=== PATIENT | female | born 1985 | race Caucasian/White ===

== ENCOUNTER → 2018-04-02 | Outpatient (CLI) | payer BC, MEDICAID ==
--- NOTE | 2018-04-02 16:29 | XCELERA REPORT ---
[address] [address] Transthoracic Echocardiogram Report Name: GILA GOODE Age: 32 yrs Gender: Female : 1985 Patient Status: Outpatient Patient Location: [facility] Study Date: 04/02/2018 08:23 AM Height: 62 in Weight: 132 lb BSA: 1.6 m2 Reason For Study: PALPITATIONS Ordering Physician: ADELE DEWEY Performed By: Jojo Chowdhury Interpretation Summary Suboptimal study due to poor endocardial definition of myocardium in Apical 4 chamber view, and no apical 2 chamber view to adequately assess if regional wall motion abnormality in the inferior and anterior wall, ie incomplete evaluation of regional wall motion abn. . No MVP, no LA enlargement, n LV enlargement, LVEF is low normal, based on PLAX and A4C views. Normal RH size, no doppler evidence of ASD, no Ebsteins anomaly. and no evidence of pulm hypertension. There is hypokinesis of the IVS and Inferoseptal wall, which could cause palpitations if ischemia or perfusion abnormality is found on stress testing. MMode/2D Measurements & Calculations RVDd: 2.5 cm LVIDd: 4.4 cm FS: 26.8 % Ao root diam: 2.7 cm IVSd: 0.80 cm LVIDs: 3.2 cm EDV(Teich): 87.8 ml LVPWd: 0.80 cm ESV(Teich): 41.7 ml Ao root area: 5.6 cm2 LA dimension: 3.0 cm EF(Teich): 52.5 % Doppler Measurements & Calculations MV E max liane: MV P1/2t max liane: PA V2 max: PI end-d liane: 68.6 cm/sec 69.0 cm/sec 57.8 cm/sec 84.3 cm/sec MV A max liane: MV P1/2t: 46.4 msec PA max P.2 cm/sec MVA(P1/2t): 4.7 cm2 1.3 mmHg MV E/A: 1.4 MV dec slope: 435.6 cm/sec2 MV dec time: 0.17 sec TR max liane: MV P1/2t-pr_phl: 210.4 cm/sec 46.4 msec TR max P.7 mmHg Left Ventricle The left ventricle is normal in size. There is normal left ventricular wall thickness. The left ventricular ejection fraction is within normal limits. LV EF is 53%. Spectral Doppler of the mitral valve shows a normal E/A wave ratio. There is septal wall moderate hypokinesis. No apical 2 chamber view to assess inferior and anterior wall motion abn. There is no thrombus. Right Ventricle The right ventricle is normal size. The right ventricular systolic function is normal. Atria The right atrium is normal in size. The left atrial size is normal. The interatrial septum is intact with no evidence for an atrial septal defect. Mitral Valve There is mild mitral annular calcification. The mitral valve is grossly normal. There is no evidence of mitral valve prolapse. There is no vegetation seen on the mitral valve. There is no mitral valve stenosis. There is a mild amount of mitral regurgitation. Aortic Valve The aortic valve is trileaflet. The aortic valve opens well. The aortic valve is sclerotic and shows some degree of functional abnormality. There is no aortic valvular vegetation. There is no aortic valve stenosis. No aortic regurgitation is present. Tricuspid Valve The tricuspid valve is not well visualized secondary to technical limitations. There is no tricuspid stenosis. Right ventricular systolic pressure is normal. There is a mild amount of tricuspid regurgitation. Pulmonic Valve The pulmonic valve is not well visualized. There is a trace or physiologic amount of pulmonic regurgitation. Great Vessels The aortic root is normal size. Effusions There is no pericardial effusion. I WMSI = 1.50 % Normal = 50 Segments Size X - Cannot 2 - 4 - 1-2 small Interpret 1 - Normal Hypokinetic 3 - AkineticDyskinetic 3-5 moderate 5 - 6-14 large Aneurysmal 15-16 diffuse : ADELE DEWEY > Rohit Horton
== END ==
LOC: SP 07:45
PROVIDERS: ATTEND Family Medicine
DX: R00.2 Palpitations (principal)
CPT/HCPCS: 93306

== ENCOUNTER → 2018-04-23 | Outpatient (CLI) | payer BC ==
--- NOTE | 2018-04-23 13:32 | RADIOLOGY REPORT (SQ) ---
EXAM DESCRIPTION: KNEE LEFT 4 VIEWS COMPLETED DATE/TIME: 04/23/2018 1:13 pm REASON FOR STUDY: ACUTE PAIN OF LEFT KNEE M25.562 PAIN IN LEFT KNEE COMPARISON: None. NUMBER OF VIEWS: Four views. TECHNIQUE: AP, lateral, and both oblique radiographic images acquired of the left knee. LIMITATIONS: None. FINDINGS: MINERALIZATION: Normal. BONES: No acute fracture or dislocation. No worrisome bone lesions. JOINT: No effusion. SOFT TISSUES: No soft tissue swelling. No radio-opaque foreign body. OTHER: No other significant finding. IMPRESSION: NEGATIVE STUDY OF THE LEFT KNEE. NO RADIOGRAPHIC EVIDENCE OF ACUTE INJURY. TECHNICAL DOCUMENTATION: JOB ID: [id number] [employer]- All Rights Reserved Reading location - IP/workstation name: [email or web address]
== END ==
LOC: OD 12:50
PROVIDERS: ATTEND Family Medicine
DX: M25.562 Pain in left knee (principal)

== ENCOUNTER → 2018-06-27 | Outpatient (CLI) | payer BC ==
--- NOTE | 2018-06-27 14:42 | RADIOLOGY REPORT (SQ) ---
EXAM DESCRIPTION: ANKLE RIGHT COMPLETE COMPLETED DATE/TIME: 06/27/2018 2:16 pm REASON FOR STUDY: PAIN IN RIGHT ANKLE AND JOINTS OF RIGHT FOOT M25.571 PAIN IN RIGHT ANKLE AND JOIN TS OF RIGHT FOOT COMPARISON: None. NUMBER OF VIEWS: Three views. TECHNIQUE: AP, lateral, and oblique radiographic images acquired of the right ankle. LIMITATIONS: None. FINDINGS: MINERALIZATION: Normal. BONES: No acute fracture or dislocation. No worrisome bone lesions. JOINTS: No effusions. SOFT TISSUES: No soft tissue swelling. No foreign body. OTHER: No other significant finding. IMPRESSION: NEGATIVE STUDY OF THE RIGHT ANKLE. NO RADIOGRAPHIC EVIDENCE OF ACUTE INJURY. TECHNICAL DOCUMENTATION: JOB ID: [id number] [employer]- All Rights Reserved Reading location - IP/workstation name: [email or web address]
== END ==
LOC: OD 13:47
PROVIDERS: ATTEND Physician Assistant Medical
DX: M25.571 Pain in right ankle and joints of right foot (principal)